=== PATIENT | female | born 1950 | race American Indian/Alaskan Native ===

== ENCOUNTER 2017-11-16 07:52 | Emergency (ER) | payer BC ==
[~2017-11-16 07:52] MED LIST: ADRENALIN ONE; ATROPINE 0.1% (CARDIAC) ONE; CALCIUM CHLORIDE IV ONE; SODIUM BICARBONATE IV ONE
[2017-11-16] MEDS ORDERED: ADRENALIN 8 MG in NACL 0.9% 250ML 242 ML IV ONE (08:30)
--- NOTE | 2017-11-16 09:12 | Emergency Department Report ---
ED CPR HPI - General Stated Complaint: CARDIAC ARREST Time Seen by Provider: 11/16/17 07:52 Source: family, EMS Mode of arrival: Stretcher Limitations: Altered Mental Status, Physical Limitation, Other ( condition) - History of Present Illness Initial Comments: Patient is a 67-year-old female that presents to emergency room for a cardiac arrest. Patient brought in by EMS. EMS according patient for approximately 40 minutes. Arrest was witnessed by family. Per family patient was leaving the house to go to a doctor's visit because she had just started chemotherapy and patient became diaphoretic and dizzy and collapsed. CPR was started by family and continued by EMS. EMS intubated the patient and gave 3 rounds of epi. MD Complaint: stopped breathing Place: home Bystander CPR Performed: Yes AED Applied by Bystander/Magnetic Tape Typewriter Operator: No Shock Advised: No Initial Findings in the Field: unresponsive, no pulse, PEA Associated Symptoms: dizziness/weakness, sweating Treatments Prior to Arrival: intubation, epinephrine mgs # ED Review of Systems ROS: Stated complaint: CARDIAC ARREST Other details as noted in HPI Comment: Unobtainable due to pts medical conditions ED Past Medical Hx - Past Medical History Previous Medical History?: Yes - Surgical History Past Surgical History?: No - Family History Family history: no significant - Social History Smoking Status: Never Smoker Substance Use Type: None ED Physical Exam - General Limitations: Other (clinical condition) - Head Head exam: Present: atraumatic, normocephalic - Eye Eye exam: Present: other (pupils fixed and dilated) - Respiratory Respiratory exam: Present: normal lung sounds bilaterally, other (ET tube in place) - Cardiovascular Cardiovascular Exam: Present: other (pulseless) ED Course - Reevaluation(s) Reevaluation #1: Arrest record accordance with ACLS protocol. ET tube placement verified with bilateral breath sounds. No sounds heard over the epigastrium. See nurse's code note. 11/16/17 07:45 Reevaluation #2: Unable to revive patient[place] [address]/16/17 0822 ED Medical Decision Making - Medical Decision Making Patient is a 67-year-old male presents emergency room for a cardiac arrest. Resuscitation was unsuccessful and patient was pronounced at 0 822. Multiple rounds of CPR and meds were done - Differential Diagnosis cardia arrest, Critical Care Time: Yes Critical care attestation.: If time is entered above; I have spent that time in minutes in the direct care of this critically ill patient, excluding procedure time. Critical Care Time: 45 minutes for critical care time ED Disposition Clinical Impression: Cardiac arrest Disposition: DC-20 Is pt being admited?: No Does the pt Need Aspirin: No Condition: Undetermined Time of Disposition: 08:22
== END 2017-11-16 11:30 ==
LOC: ED 07:52
DX: I46.9 Cardiac arrest, cause unspecified (principal)
CPT/HCPCS: 82962; 92950; 99291; J0171; J0461; J7050